=== PATIENT | female | born 1980 ===

== ENCOUNTER 2016-11-21 12:45 | Emergency (ER) | payer SELFPAY ==
[2016-11-21 12:45] VITALS: BMI 26.4
[2016-11-21 12:48] VITALS: BP 120/71; PULSE 88; RESP 16; TEMP 98.6; O2SAT 98
[2016-11-21] MEDS ORDERED: cefTRIAXone (Rocephin) 1 gm Inj IM ONE (13:02)
--- NOTE | 2016-11-21 13:05 | ED PDOC ---
HPI: Female Pain Time Seen by Provider: 11/21/16 12:49 Chief Complaint (Nursing): Female Genitourinary Chief Complaint (Provider): Dysuria History Per: Patient History/Exam Limitations: no limitations Onset/Duration Of Symptoms: Hrs Current Symptoms Are (Timing): Still Present Additional Complaint(s): Patient is a 36 year old female with a past medical history of frequent urinary tract infections who presents to the emergency department for dysuria that began last night accompanied by suprapubic pain, frequency, and hesitancy. This morning, the suprapubic pain radiated to her right lower back but not to her flanks. Denies incontinence, hematuria, fever, nausea, vomiting, diarrhea, kidney stones, vaginal discharge, vaginal bleeding, and previous admissions for her UTIs. PCP: none provided. Past Medical History Reviewed: Historical Data, Nursing Documentation, Vital Signs Vital Signs: Last Vital Signs Temp 98.6 F 11/21/16 12:47 Pulse 88 11/21/16 12:47 Resp 16 11/21/16 12:47 BP 120/71 11/21/16 12:47 Pulse Ox 98 11/21/16 12:47 - Medical History PMH: Denies: Kidney Stones Other PMH: UTI - Surgical History Surgical History: No Surg Hx - Family History Family History: States: Unknown Family Hx - Social History Current smoker - smoking cessation education provided: No Alcohol: Social Drugs: Denies - Home Medications Home Medications: Ambulatory Orders Medication Instructions Recorded Nitrofurantoin Macrocrystals 100 mg PO BID #14 cap 11/21/16 [Macrobid] Phenazopyridine [Pyridium] 100 mg PO BID #6 tab 11/21/16 - Allergies Allergies/Adverse Reactions: Allergies Allergy/AdvReac Type Severity Reaction Status Date / Time No Known Allergies Allergy Verified 11/07/12 22:45 Review of Systems ROS Statement: Except As Marked, All Systems Reviewed And Found Negative Constitutional: Negative for: Fever Gastrointestinal: Negative for: Nausea, Vomiting, Diarrhea Genitourinary Female: Positive for: Dysuria, Frequency, Other (Hesitancy). Negative for: Hematuria Physical Exam - Reviewed Nursing Documentation Reviewed: Yes Vital Signs Reviewed: Yes - Physical Exam Appears: Positive for: Well, Non-toxic, No Acute Distress Head Exam: Positive for: ATRAUMATIC, NORMAL INSPECTION, NORMOCEPHALIC Skin: Positive for: Normal Color, Warm, Dry. Negative for: Rash Gastrointestinal/Abdominal: Positive for: Normal Exam, Soft. Negative for: Tenderness (Tender to deep palpation), Other (psoas and obturator sign) Back: Positive for: Normal Inspection. Negative for: L CVA Tenderness, R CVA Tenderness Neurologic/Psych: Positive for: Alert, Oriented - Laboratory Results Urine POC: Negative Urine dip results: Positive for: Leukocyte Esterase (large), Blood (large), Nitrate (positive), Protein (>300). Negative for: Ketones, Glucose, Bilirubin - ECG O2 Sat by Pulse Oximetry: 98 (RA) Pulse Ox Interpretation: Normal - Progress ED Course And Treament: Rocephin 1gm IM, pyridium 200mg PO given. On re-evaluation, pt. reports feeling better. Abd remains soft and non-tender. No CVA tenderness b/l. Medical Decision Making Medical Decision Making: Time: 12:50 Initial Impression: Dysuria Initial Plan: * Urine Dipstick * Urine * Rocephin 1 gm IM * Pyridium 200 mg PO * Urine Culture * Reevaluation Time: 13:31 Upon provider reevaluation patient is feeling better, is medically stable, and requires no further treatment in the ED at this time. Patient will be discharged with Rx for Macrobid 100 mg and Pyridium 100 mg. Counseling was provided and all questions were answered regarding diagnosis and need for follow up with referred clinic. There is agreement to discharge plan. Return if symptoms persist or worsen. Clinical Impression: Urinary Tract Infection Scribe Attestation: Documented by Kasia Stewart, acting as a scribe for Barak Camargo PA-C. Provider Scribe Attestation: All medical record entries made by the Scribe were at my direction and personally dictated by me. I have reviewed the chart and agree that the record accurately reflects my personal performance of the history, physical exam, medical decision making, and the department course for this patient. I have also personally directed, reviewed, and agree with the discharge instructions and disposition. Disposition - Clinical Impression Clinical Impression: Urinary tract infection - Patient ED Disposition Is Patient to be Admitted: No - Disposition Referrals: [facility] [Outside] Disposition: Routine/Home Disposition Time: 13:31 Condition: IMPROVED Additional Instructions: Drink cranberry juice. Follow up with [facility] for further evaluation. Return to ED immediately if symptoms persist or worsen. Prescriptions: Nitrofurantoin Macrocrystals [Macrobid] 100 mg PO BID #14 cap Phenazopyridine [Pyridium] 100 mg PO BID #6 tab Instructions: Urinary Tract Infection in Women (ED) Print Language: MALAGASY
== END 2016-11-21 13:38 | disposition home or self-care (01) ==
LOC: H.ER 12:45
DX: N39.0 Urinary tract infection, site not specified (principal)

== ENCOUNTER 2016-12-09 14:12 | Emergency (ER) | payer SELFPAY ==
[2016-12-09 14:12] VITALS: BMI 26.4
[2016-12-09 14:27] VITALS: BP 155/83; O2SAT 99
--- NOTE | 2016-12-09 14:45 | ED PDOC ---
HPI: Abdomen Time Seen by Provider: 12/09/16 14:19 Chief Complaint (Nursing): Abdominal Pain Chief Complaint (Provider): Abdominal Pain History Per: Patient Additional Complaint(s): Pt. complains of "lower abdominal pain x 3 days with accompanying chills, fever and burning upon urination". No nausea and vomiting. Past Medical History Reviewed: Historical Data, Nursing Documentation, Vital Signs Vital Signs: Last Vital Signs Temp 98.9 F 12/09/16 19:33 Pulse 87 12/09/16 19:33 Resp 18 12/09/16 19:33 BP 155/83 H 12/09/16 14:26 Pulse Ox 99 12/25/16 13:04 - Medical History PMH: Denies: Kidney Stones - Surgical History Surgical History: No Surg Hx - Family History Family History: States: Unknown Family Hx - Living Arrangements Living Arrangements: With Family - Social History Current smoker - smoking cessation education provided: No Alcohol: None Drugs: Denies - Home Medications Home Medications: Ambulatory Orders Medication Instructions Recorded Nitrofurantoin Macrocrystals 100 mg PO BID #14 cap 11/21/16 [Macrobid] Phenazopyridine [Pyridium] 100 mg PO BID #6 tab 11/21/16 Sulfamethoxazole/Trimethoprim 1 tab PO BID 10 Days 12/09/16 [Bactrim DS 800 mg-160 mg] - Allergies Allergies/Adverse Reactions: Allergies Allergy/AdvReac Type Severity Reaction Status Date / Time No Known Allergies Allergy Verified 11/07/12 22:45 Review of Systems ROS Statement: Except As Marked, All Systems Reviewed And Found Negative Constitutional: Positive for: Fever Gastrointestinal: Positive for: Abdominal Pain Physical Exam - Reviewed Nursing Documentation Reviewed: Yes Vital Signs Reviewed: Yes - Physical Exam Appears: Positive for: Well, Non-toxic, No Acute Distress Head Exam: Positive for: ATRAUMATIC, NORMAL INSPECTION, NORMOCEPHALIC Skin: Positive for: Normal Color, Warm, DRY Eye Exam: Positive for: EOMI, Normal appearance, PERRL ENT: Positive for: Normal ENT Inspection Neck: Positive for: Normal, Painless ROM Cardiovascular/Chest: Positive for: Regular Rate, Rhythm Respiratory: Positive for: CNT, Normal Breath Sounds Gastrointestinal/Abdominal: Positive for: Normal Exam, Bowel Sounds, Soft Back: Positive for: Normal Inspection Extremity: Positive for: Normal ROM Neurologic/Psych: Positive for: Alert, Oriented - Laboratory Results Result Diagrams: 12/09/16 14:56 12/09/16 15:05 - ECG O2 Sat by Pulse Oximetry: 99 Medical Decision Making Medical Decision Making: IV access established and treatment initiated with IVF and Rocephin after dip was (+) for blood, leuks and nites. Motrin and Tylenol administered for pain and fever Labs resulted and reviewed with pt who demonstrated full understanding On re-eval, Pt reports feeling greatly improved. Abdomen soft, non tedner and non distended Repeat temp: 98.9 F stable for outpt therapy at this time. advised to return ot eD if at anytime condition worsens. Disposition - Clinical Impression Clinical Impression: Pyelonephritis - Patient ED Disposition Is Patient to be Admitted: No - Disposition Disposition: Routine/Home Disposition Time: 16:00 Condition: STABLE Prescriptions: Sulfamethoxazole/Trimethoprim [Bactrim DS 800 mg-160 mg] 1 tab PO BID 10 Days Instructions: Acute Pyelonephritis (ED) Forms: [employer] (Azeri)
[2016-12-09 15:13] LABS: BASO % 0.4 % (0.0-2.0); EOS % 0.5 % (0.0-4.0); LYMPH # 1.8 K/uL (1.0-4.3); LYMPH % 18.8 % (20.0-40.0); MEAN CELL VOLUME 79.7 fl (81.0-99.0); MEAN CORPUSCULAR HEMOGLOBIN 25.9 pg (27.0-31.0); MEAN CORPUSCULAR HGB CONC 32.5 g/dL (33.0-37.0); MEAN PLATELET VOLUME 8.9 fl (7.2-11.7); MONO # 0.9 K/uL (0.0-0.8); MONO % 9.4 % (0.0-10.0); NEUT # 6.6 K/uL (1.8-7.0); NEUT % 70.9 % (50.0-75.0); WHITE BLOOD COUNT 9.3 K/uL (4.8-10.8)
[2016-12-09 15:24] LABS: ALB/GLOB RATIO 1.3 (1.0-2.1); ALKALINE PHOSPHATASE 73 U/L (38-126); ALT/SGPT 45 U/L (9-52); AMYLASE 108 U/L (30-110); AST/SGOT 35 U/L (14-36); BILIRUBIN,TOTAL 0.6 mg/dl (0.2-1.3); BLOOD UREA NITROGEN 10 mg/dl (7-17); CALCIUM 9.8 mg/dL (8.4-10.2); CARBON DIOXIDE 26 mmol/L (22-30); CHLORIDE 102 mmol/L (98-107); GFR AFRICAN-AMERICAN > 60; GLUCOSE,RANDOM 100 mg/dL (65-105); LIPASE 89 U/L (23-300); POTASSIUM 4.6 MMOL/L (3.6-5.0); SODIUM 141 mmol/l (132-148); TOTAL PROTEIN 8.5 G/DL (6.3-8.2)
[2016-12-09 15:53] LABS: RBC URINE 8 /hpf (0-3); URINE BACTERIA OCC (<OCC); URINE BILIRUBIN NEGATIVE (NEGATIVE); URINE BLOOD MODERATE (NEGATIVE); URINE COLOR YELLOW (YELLOW); URINE GLUCOSE (UA) NEG (Normal); URINE KETONE NEGATIVE (NEGATIVE); URINE LEUKOCYTE ESTERASE LARGE Leu/uL (Negative); URINE PROTEIN 30 mg/dL (NEGATIVE); URINE UROBILINOGEN 0.2-1.0 mg/dL (0.2-1.0); WBC URINE 404 /hpf (0-5)
[2016-12-09 15:55] LABS: WBC CLUMPS OCC /hpf
--- NOTE | 2016-12-09 17:41 | US ---
HISTORY: Severe abdominal cramping. LMP by history 2 weeks ago COMPARISON: None available. TECHNIQUE: Transabdominal only. Real-time technique with 2D, duplex and color Doppler FINDINGS: UTERUS: Measures 4.4 x 6 x 11 cm. Normal in size and appearance. No fibroid or other mass lesion seen. ENDOMETRIUM: Measures 7.6 mm in diameter. Intrauterine contraceptive device (IUD) identified in satisfactory position. Otherwise unremarkable endometrial echo complex. CERVIX: No cervical abnormality identified. RIGHT OVARY: Measures 1 x 2.8 x 1.9 cm. No solid mass. Normal flow. Multiple subcentimeter follicles. LEFT OVARY: Measures 1.6 x 2.8 x 3.1 cm. No solid mass. Normal flow. Multiple subcentimeter follicles. FREE FLUID: No significant free fluid noted. OTHER FINDINGS: None. IMPRESSION: Satisfactory position of intrauterine contraceptive device. No acute findings. Additional benign and/or incidental findings described above.
[2016-12-09] MEDS ORDERED: cefTRIAXone (Rocephin) 1 gm Inj ONE (18:11)
[2016-12-09 20:46] VITALS: PULSE 87; RESP 18; TEMP 98.9
== END 2016-12-09 19:33 | disposition home or self-care (01) ==
LOC: H.ER 14:12
DX: N12 Tubulo-interstitial nephritis, not specified as acute or chronic (principal)
CPT/HCPCS: 76856; 80053; 81003; 82150; 83690; 85025; 96365; 99284; J0696